=== PATIENT | male | born 1990 | race Caucasian/White ===

== ENCOUNTER 2022-05-21 08:56 | Outpatient (REF) | payer BC, SELFPAY ==
[2022-05-21 11:26] LABS: Appearance Urine Clear; Color Urine Yellow; Glucose Urine UA Negative (Negative); Leukocyte Esterase Urine Negative (Negative); Nitrite Urine Negative (Negative); PH 6.5 (5.0-9.0); Urine Blood Negative (Negative); Urine Ketones Negative (Negative); Urine Protein Negative (Neg-Trace)
[2022-05-21 12:25] LABS: Alanine Aminotransferase 37 U/L (0-40); Albumin Level 4.6 g/dL (3.5-5.0); Alkaline Phosphatase 60 U/L (39-117); Anion Gap 8 (12-20); Aspartate Amino Transferase 29 U/L (5-37); Blood Urea Nitrogen 15 mg/dL (9-16); Calcium 9.9 mg/dL (8.4-10.2); Carbon Dioxide 29 mmol/L (22-29); Chloride 103 mmol/L (96-108); Cholesterol 259 mg/dL; Estimated Glomerular Filt Rate > 60; Glucose Fasting 85 mg/dL (60-99); HDL Cholesterol 46 mg/dL; LDL Cholesterol Calculated 184 mg/dl; Potassium 4.2 mmol/L (3.3-5.1); Sodium 136 mmol/L (135-145); TSH reflex Free T4 1.16 uIU/mL (0.32-4.0); Total Protein 7.2 g/dL (6.5-8.0); Triglycerides 149 mg/dL
[2022-05-21 12:28] LABS: Creatinine Urine 114.02 mg/dL; Microalbum/Creatinine Ratio Ur 7.8 ug/mg cr
[2022-05-22 08:39] LABS: HBS Num1 99.74 mIU/mL (0-7.99); HBsAGNum1 0.26 S/CO (0.00-0.99); HIV AB/AG Nonreactive (Nonreactive); HIV Num 1 0.08 S/CO (0.00-0.99); Hepatitis B Core Antibody Nonreactive (Nonreactive); Hepatitis B Surface Antigen Negative (Negative); ~Hepatitis B Surface Antibody REACTIVE (Nonreactive); ~Hepatitis C Antibody Nonreactive (Nonreactive)
[2022-05-22 08:59] LABS: Syphilis Screen Nonreactive (Nonreactive)
== END 2022-05-21 08:57 | disposition home or self-care (01) ==
LOC: HO.WFDLDS 08:56
PROVIDERS: Visit Provider Family Medicine
DX: Z00.00 Encounter for general adult medical examination without abnormal findings (principal); Z11.4 Encounter for screening for human immunodeficiency virus [HIV]; Z11.3 Encounter for screening for infections with a predominantly sexual mode of transmission; I10 Essential (primary) hypertension
CPT/HCPCS: 36415; 80053; 80061; 81003; 82043; 84443; 86704; 86706; 86780; 86803; 87340; 87389

== ENCOUNTER 2022-11-19 09:01 | Outpatient (REF) | payer BC, SELFPAY ==
[2022-11-19 12:18] LABS: Anion Gap 10 (12-20); Blood Urea Nitrogen 19 mg/dL (9-16); Calcium 9.6 mg/dL (8.4-10.2); Carbon Dioxide 25 mmol/L (22-29); Chloride 105 mmol/L (96-108); Cholesterol 239 mg/dL; Estimated Glomerular Filt Rate > 60; Glucose Fasting 94 mg/dL (60-99); HDL Cholesterol 41 mg/dL; LDL Cholesterol Calculated 167 mg/dl; Potassium 4.2 mmol/L (3.3-5.1); Sodium 136 mmol/L (135-145); Triglycerides 155 mg/dL
[2022-11-19 14:34] LABS: CT PCR NOT DETECTED (Not Detect.); NG PCR NOT DETECTED (Not Detect.)
== END 2022-11-19 09:02 | disposition home or self-care (01) ==
LOC: HO.WFDLDS 09:01
PROVIDERS: Visit Provider Family Medicine
DX: Z00.00 Encounter for general adult medical examination without abnormal findings (principal); E78.5 Hyperlipidemia, unspecified; Z20.2 Contact with and (suspected) exposure to infections with a predominantly sexual mode of transmission
CPT/HCPCS: 0353U; 80048; 80061

== ENCOUNTER 2022-11-20 16:36 | Outpatient (AMB) | payer BC, SELFPAY ==
--- NOTE | 2022-11-20 16:41 | MHC.PC.OV ---
Vital Signs 11/20/22 16:42 Height 5 ft 11 in Weight 199 lb BMI 27.8 BP 128/70 Blood Pressure Location Lt brachial Position Sitting Respiration 12 Pulse 68 Pulse Source Pulse Oximeter Temp 97.8 F Temp Source Temporal Artery Scan Pulse Oximetry (%) 99 Oxygen Delivery Method Room Air Intake Visit Reasons: 3 M. 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 F/T-[id number] HPI Details 32 y/o male presents to f/u hypercholesterolemia. Last LDL cholesterol was 184 and advised lifestyle changes. Labs were drawn 11/19/22. Reviewed labs with pt. Triglycerides 155. TC 239. LDL imporved from 184 to 167. Pt has lost weight - from 216 lbs to 199 lbs. He would like to trial more lifestyle changes. [facility] Medical History (Updated 11/20/22 @ 16:48 by Nancy Harrell MA) No pertinent past medical history Surgical History (Updated 11/20/22 @ 16:48 by Nancy Harrell MA) No pertinent past surgical history Social History (Updated 11/20/22 @ 16:55 by Nancy Harrell MA) Household Members: Family Caregiver staying overnight: No Housing: Apartment Are you a primary healthcare account manager to a significant other at home: No Do you presently have visiting nurse or other home services: No 75 years or older and lives alone: No Alcohol intake: current Patient Tobacco Use Status: Never used Tobacco Smoked in Last 30 Days: No e-Cigarette/Vaping Use: Never Used Patient Interested in Nicotine Replacement: No Patient Given Instructions on How to Stop Smoking: No Second Hand Smoke Exposure: No Use of substances other than those prescribed or required for medical reasons: No Currently Displaying Signs/Symptoms of Drug Intoxication Withdrawal: No Any prior treatment program specific to substance use: No Have you been hit, kicked, punched, or otherwise hurt by someone within the past year? If so, by whom?: No Do you feel safe in your current relationship?: Yes Is there a partner from a previous relationship who is making you feel unsafe now?: No Are you made to feel afraid or neglected: No Special rubina needs: No Agree to transfusion: Yes Are you DNR?: No Advance Directives: Yes Advance Directives Information Provided: No Advance Directives on File: No Healthcare Proxy: No If Yes to HCP, is it invoked: No Guardian: No Access to Firearms: Yes Do you have thoughts of harming others: None Do you have a plan to hurt others: No Plan Do you have the means to hurt others: No Current Diet: Other Recently lost weight without trying: No Eating poorly because of decreased appetite: No Nutrition Risks: No Nutritional Risk service: No Current occupational status: employed 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 Joseph Sanchez, Kylee Cervantes, Zac Mao and colleagues, with an educational leola from [employer]. Review of Systems Const Denies chills, Denies fatigue, Denies fever(s), Denies headache(s) and Denies weakness ENT Denies dizziness and Denies headache(s) Card Denies chest pain, Denies lightheadedness, Denies dyspnea and Denies other (Palpitations) Resp Denies cough, Denies dyspnea, Denies wheezing and Denies other ( shortness of breath) Musc Denies numbness and Denies tingling Neuro Denies dizziness, Denies headache(s), Denies numbness, Denies tingling, Denies paresthesias and Denies weakness Psych Denies anxiety and Denies depression Endo Denies fatigue Aller/Immun Denies wheezing Physical exam (Primary Care) Vital Signs: Last Vital Signs Temp 97.8 F 11/20/22 16:42 Pulse 68 11/20/22 16:42 Resp 12 11/20/22 16:42 BP 128/70 11/20/22 16:42 Pulse Ox 99 11/20/22 16:42 Oxygen Delivery Method Room Air 11/20/22 16:42 BMI result Body Mass Index 27.8 Tobacco/Smoking Status: Tobacco use Status Tobacco use date assessed 05/20/22 11/20/22 16:56 Patient Tobacco Use Status Never used Tobacco 11/20/22 16:56 e-Cigarette/Vaping Use Never Used 11/20/22 16:56 Thrive Assessment: Date of Thrive Assessment Date Thrive assessed 06/26/22 11/20/22 16:56 Const General: no acute distress and well developed Nutritional Appearance: well nourished Orientation/consciousness: patient oriented x3 HENMT Head: Yes normocephalic and Yes atraumatic Eyes General: appearance normal, both eyes and all related structures Pupils: Equal, round and reactive pupils present EOM: EOMs intact bilaterally Resp Effort & Inspection: normal respiratory effort Auscultation: clear to auscultation bilaterally Cardio Rate: regular rate Rhythm: regular rhythm Heart sounds: S1 normal heart sound present, S2 normal heart sound present, no gallops, no murmurs and no rubs Neuro General: patient oriented x3 and gait normal Cranial nerves: Yes Equal, round and reactive pupils present Psych Affect: normal affect Assessment and Plan Assessment & Plan (1) Hyperlipidemia: Code(s): E78.5 - Hyperlipidemia, unspecified Plan: Patient lost a significant amount of weight and LDL has improved though still significantly above goal of less than 130. Discussed medications but patient would like to continue with lifestyle changes to see if he can get to goal or closer to goal. He will recheck his lipids prior to his next visit. We discussed that if LDL is still above the 140s in 2 months, we will reconsider a statin medication. Orders: Orders Basic Metabolic Panel 6 Weeks E78.5 - Hyperlipidemia, unspecified, Z00.00 - Encounter for general adult medical examination without abnormal findings Lipid Panel 6 Weeks E78.5 - Hyperlipidemia, unspecified, Z00.00 - Encounter for general adult medical examination without abnormal findings Coding Level of Care Code Est Pt Level 3 (42639) Diagnoses Hyperlipidemia E78.5
[2022-11-20 16:42] VITALS: BP 128/70; PULSE 68; RESP 12; TEMP 36.6; O2SAT 99; BMI 27.8
== END 2022-11-20 17:10 | disposition home or self-care (01) ==
PROVIDERS: Visit Provider Family Medicine
DX: E78.5 Hyperlipidemia, unspecified (principal)
CPT/HCPCS: 99213

== ENCOUNTER 2024-04-19 10:10 | Outpatient (REF) | payer BC, SELFPAY | END 2024-04-19 10:11 | disposition home or self-care (01) | LOC: HO.WFDLDS 10:10 | PROVIDERS: Visit Provider Family Medicine | DX: Z71.85 Encounter for immunization safety counseling (principal); Z01.84 Encounter for antibody response examination | CPT/HCPCS: 36415; 86787 ==

== ENCOUNTER 2024-05-04 15:57 | Outpatient (AMB) | payer OTHER, SELFPAY ==
--- NOTE | 2024-05-04 16:01 | MHC.PC.OV ---
Vital Signs 05/04/24 16:09 Height 5 ft 11 in Weight 233 lb BMI 32.5 BP 110/70 Blood Pressure Location Lt brachial Position Sitting Respiration 16 Pulse 87 Pulse Source Pulse Oximeter Pulse Oximetry (%) 96 Oxygen Delivery Method Room Air Intake Visit Reasons: Annual PE Intake Note: PE Allergies No Known Allergies Allergy (Verified 05/04/24 16:07) Tobacco use date assessed: 05/20/22 Dental Screening Dental Screen Date: 11/20/22 HPI Annual PE HPI Details 34 y/o male presents for a CPE with f/u labs and health maintenance. No recent labs to review. Gets some exercise chasing his child. HPI Comments History of Present Illness Details Documentation assistance for Tereso Smith MD, was provided by Kain Liu,? Aeronautical Engineering Technologist on 05/04/2024 at 4:28 PM EST. I, Dr. Smith, have read, observed, and verified documentation. ?? [facility] Medical History (Updated 04/19/24 @ 09:59 by Tereso Smith MD) No pertinent past medical history Surgical History (Updated 11/20/22 @ 16:48 by ISSA Black) No pertinent past surgical history Family History (Updated 05/04/24 @ 16:06 by Carly Ayala CMA) Family/Other High blood pressure Social History (Updated 11/20/22 @ 16:55 by ISSA Black) Household Members: Family Caregiver staying overnight: No Housing: Apartment Are you a primary chronic care nurse to a significant other at home: No Do you presently have visiting nurse or other home services: No 75 years or older and lives alone: No Alcohol intake: current Patient Tobacco Use Status: Never used Tobacco e-Cigarette/Vaping Use: Never Used Second Hand Smoke Exposure: No Special rubina needs: No Agree to transfusion: Yes service: No Current occupational status: employed 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 1. Little interest or pleasure in doing things: not at all 2. Feeling down, depressed, or hopeless: not at all 3. Trouble falling or staying asleep, or sleeping too much: not at all 4. Feeling tired or having little energy: not at all 5. Poor appetite or overeating: not at all 6. Feeling bad about yourself - or that you are a failure or have let yourself or your family down: not at all 7. Trouble concentrating on things, such as reading the newspaper or watching television: not at all 8. Moving or speaking so slowly that other people could have noticed. Or the opposite - being so fidgety or restless that you have been moving around a lot more than usual: not at all 9. Thoughts that you would be better off or of hurting yourself in some way: not at all Total score: 0 Depression Screening Interpretation: Negative Depression Screening Done: Yes 68232 - PHQ-9 Billing: Yes Source: Developed by Drs. Joseph Sanchez, Kylee Cervantes, Zac Mao and colleagues, with an educational leola from [employer]. Thrive Questionnaire Date Thrive assessed: 05/04/24 I am a: Patient What is your living situation today?: I have a steady place to live Within the past 12 months, did the food you bought not last and you didn't have the money to get more?: Never true Within the past 12 months, did you worry whether your food would run out before you got money to buy more?: Never true Do you have trouble paying for medicines?: No Do you have trouble getting transportation to medical appointments?: No Do you have trouble paying your heating and electricity bill?: No Do you have trouble taking care of your child, family member or friend?: No Do you have trouble with day-to-day activities such as bathing, preparing meals, shopping, managing finances, etc.?: No Are you currently unemployed and looking for a job?: No Are you interested in more education?: No Please select the resources that you would like help with: None Currently or been in a relationship where the following occur: I choose not to answer THRIVE Score: 0 AUDIT C Alcohol Use Questionnaire (AUDIT-C) 1. How often do you have a drink containing alcohol?: 2-3 times a week 2. How many drinks containing alcohol do you have on a typical day when you are drinking?: 5 or 6 3. How often do you have six or more drinks on one occasion?: Monthly Total Score: 7 HOLLIE-7 AMB Questionnaire HOLLIE-7 Date HOLLIE - 7 assessed: 05/04/24 Feeling nervous, anxious, or on edge: 0 = Not at all Not being able to stop or control worryin = Not at all Worrying too much about different things: 0 = Not at all Trouble relaxin = Not at all Being so restless that it is hard to sit still: 0 = Not at all Becoming easily annoyed or irritable: 0 = Not at all Feeling afraid as if something awful might happen: 0 = Not at all Total HOLLIE-7 score (0-4 normal; 5-9 mild; 10-14 moderate; 15-21 severe): 0 Source: Developed by Drs. Joseph Sanchez, Kylee Cervantes, Zac Mao and colleagues, with an educational leola from [employer]. HOLLIE-7 Assessment Billing HOLLIE-7 Assessment Tool: HOLLIE-7 Assessment 42968 Review of Systems Const Denies chills, Denies fatigue, Denies fever(s), Denies headache(s) and Denies weakness Eyes Denies change in vision ENT Denies dizziness, Denies headache(s), Denies hearing loss, Denies nasal congestion, Denies sinus pain, Denies sinus pressure and Denies sore throat Card Denies chest pain, Denies lightheadedness, Denies dyspnea and Denies other (palpitations) Resp Denies cough, Denies dyspnea and Denies wheezing GI Denies abdominal pain, Denies melena, Denies hematochezia, Denies change in bowel habits, Denies dyspepsia and Denies nausea Denies hematuria and Denies dysuria Musc Denies abnormal gait, Denies myalgias, Denies arthralgias, Denies numbness and Denies tingling Skin/Breast Denies rash, Denies unusual bruising and Denies wounds Neuro Denies abnormal gait, Denies dizziness, Denies headache(s), Denies memory loss, Denies numbness, Denies Sensory deficit (Neuro), Denies tingling and Denies weakness Psych Denies anxiety, Denies depression and Denies memory loss Endo Denies cold intolerance, Denies fatigue, Denies heat intolerance, Denies polydipsia and Denies polyuria Lucien/Lymph Denies easy bleeding and Denies easy bruising Aller/Immun Denies wheezing Physical exam (Primary Care) Vital Signs: Last Vital Signs Pulse 87 05/04/24 16:09 Resp 16 05/04/24 16:09 BP 110/70 05/04/24 16:09 Pulse Ox 96 05/04/24 16:09 Oxygen Delivery Method Room Air 05/04/24 16:09 BMI result Body Mass Index 32.5 Tobacco/Smoking Status: Tobacco use Status Tobacco use date assessed 05/20/22 05/04/24 16:02 Patient Tobacco Use Status Never used Tobacco 05/04/24 16:02 e-Cigarette/Vaping Use Never Used 05/04/24 16:02 PHQ-9: PHQ-9 Score PHQ-9: Total score 0 05/04/24 16:18 Depression Screening Interpretation: Negative Thrive Assessment: Date of Thrive Assessment Date Thrive assessed 05/04/24 05/04/24 16:12 Currently or been in a relationship where the following occur: I choose not to answer Const General: no acute distress, well developed, alert and awake Nutritional Appearance: well nourished Orientation/consciousness: patient oriented x3 HENMT Head: Yes normocephalic and Yes atraumatic Ears: hearing grossly normal bilaterally and TM's normal bilaterally General nose exam: Normal external nose present and Normal nares present Mouth: Normal oral and palatal mucosa present and moist mucous membranes Teeth and gingiva: dentition normal Throat: Yes posterior oropharynx normal Eyes General: appearance normal, both eyes and all related structures Pupils: Equal, round and reactive pupils present and Pupil accommodation reflex normal EOM: EOMs intact bilaterally Neck Neck: Yes normal visual inspection, Yes no lymphadenopathy and Yes trachea midline Thyroid: Thyroid normal Carotids: no bruits Lymphatic: no lymphadenopathy noted Chest Chest palpation & inspection: normal inspection of the chest Resp Effort & Inspection: normal respiratory effort Auscultation: clear to auscultation bilaterally Cardio Rate: regular rate Rhythm: regular rhythm Heart sounds: S1 normal heart sound present, S2 normal heart sound present, no gallops, no murmurs and no rubs Bruits: no abdominal aortic bruits and no carotid bruits GI Palpation (GI): No Abdominal aortic bruit present, Soft to palpation, nontender, No hepatosplenomegaly present and No Rebound tenderness present Auscultation: normal bowel sounds General: Yes no CVA tenderness Back/Spine/Pelvis Back: no CVA tenderness Cervical Spine: cervical ROM normal and No Cervical spine tenderness Thoracic/Lumbar Spine: thoraco-lumbar ROM normal, No pain with thoraco-lumbar ROM, No thoracic spinal tenderness and No lumbar spinal tenderness Skin Lesions: no lesions Rashes: no rashes Trauma: no lacerations or abrasions Wounds: no wounds Nails: normal Neuro General: patient oriented x3 Cranial nerves: Yes Equal, round and reactive pupils present Cognition (Neuro): normal cognition Gait exam (Neuro): Normal gait present Motor exam (neuro): 5/5 motor strength present throughout Sensory Exam: No Sensory deficit (Neuro) Deep tendon reflexes (DTR's): Right patellar reflex intensity grade: 2+ and Left patellar reflex intensity grade: 2+ Extrem General: Yes normal to inspection and No edema Psych Appearance: grossly normal Affect: normal affect Attitude: cooperative Thought process: Normal thought process present Coding Level of Care Code Est Pt Level 3 (42456) Est Pt Prev Care 18-39y(69292) Diagnoses Adult general medical exam Z00.00 Hyperlipidemia E78.5 Additional Codes HOLLIE-7 Assessment Billing - HOLLIE-7 Assessment Tool: HOLLIE-7 Assessment 91002 ([id number]) PHQ-9 - 45361 - PHQ-9 Billing: Yes ([id number]) Assessment & Plan Assessment & Plan (1) Adult general medical exam: Code(s): Z00.00 - Encounter for general adult medical examination without abnormal findings Category: Medical Plan: 34-year-old?male?presents?for?complete?physical?exam Encouraged?healthy?diet?with?active?lifestyle?and?exercise (2) Hyperlipidemia: Code(s): E78.5 - Hyperlipidemia, unspecified Category: Medical Plan: Lipids?have?been?elevated. Patient?will?get?his?labs?redrawn?and?we?will?follow-up?in?about?a?month. We?have?discussed?previously?that?if?he?is?not?able?to?bring?them?down?considerably,?we?may?want?to?start?medication. Patient?says?he?has?started?working?on?increasing?his?activity?and?working?on?losing?weight?as?he?notes?that?when?he?is?chasing?his?7-year-old?child?seems?a?little?deconditioned. Encouraged?additional?exercise?diet. Will?discuss?further?at?next?visit Orders: Orders TSH reflex Free T4 Today Z00.00 - Encounter for general adult medical examination without abnormal findings Comprehensive Superior. Panel Fast Today Z00.00 - Encounter for general adult medical examination without abnormal findings Lipid Panel Today Z00.00 - Encounter for general adult medical examination without abnormal findings Microalbumin, Random (w Creat) Today I10 - Essential (primary) hypertension UA and rflx microscopic Today Z00.00 - Encounter for general adult medical examination without abnormal findings
[2024-05-04 16:09] VITALS: BP 110/70; PULSE 87; RESP 16; O2SAT 96; BMI 32.5
== END 2024-05-04 16:29 | disposition home or self-care (01) ==
PROVIDERS: PCP Family Medicine; Visit Provider Family Medicine
DX: Z00.00 Encounter for general adult medical examination without abnormal findings (principal); E78.5 Hyperlipidemia, unspecified

== ENCOUNTER → 2024-05-04 15:57 | Outpatient (BNVA) | payer OTHER, SELFPAY | PROVIDERS: PCP Family Medicine; Visit Provider Family Medicine | DX: Z00.00 Encounter for general adult medical examination without abnormal findings (principal); E78.5 Hyperlipidemia, unspecified | CPT/HCPCS: 96127 ==